=== PATIENT | female | born 1995 | race Caucasian/White ===

== ENCOUNTER 2021-05-14 18:17 | Emergency (ER) | payer OTHER, SELFPAY ==
[2021-05-14 18:37] VITALS: BP 122/84; PULSE 78; RESP 18; TEMP 36.9; O2SAT 100; BMI 35.4
--- NOTE | 2021-05-14 19:53 | HMH.EDUTC ---
[facility] [place] Clinical Impression: Nausea and vomiting Qualifiers: Vomiting type: unspecified Qualified Code(s): R11.2 - Nausea with vomiting, unspecified Qualifiers: Weeks of gestation: 8 weeks Qualified Code(s): Z3A.08 - 8 weeks gestation of Disposition: Home, Self-Care Condition on Discharge: Good Instructions: Diet, Nausea and Vomiting-Adult, Promethazine Additional Instructions: Drink plenty of fluids. Water would be best, but a pedialyte or a sports electrolyte drink would be good also. Take the medications as directed. Follow up with your regular doctor. GO TO THE ER FOR ANY WORSENING SYMPTOMS Prescriptions: Promethazine HCl [Phenergan 25mg tab] 25 mg PO Q6H PRN #20 tab PRN Reason: Nausea And Vomiting Transmission Status: Received by [facility] Referrals: Provider,Referral, [Primary Care Provider] - Forms: Work/School Release Time of Disposition: 19:58 Medical Decision Making - Medical Records Medical records reviewed: No: I reviewed the patient's medical records. - Darrell Inquiry Pt receiving controlled substance: No Vital Signs: 05/14/21 18:37 05/14/21 19:54 05/14/21 20:01 Temperature 98.4 F 98.7 F 98.7 F Temperature Source Oral Oral Oral Pulse Rate 64 Pulse Rate [Right Radial] 78 68 Respiratory Rate 18 16 16 Blood Pressure 110/71 Blood Pressure [Right Arm] 122/84 104/61 L Blood Pressure Mean [Right Arm] 96 75 Blood Pressure Source [Right Arm] Automatic Cuff Blood Pressure Position [Right Arm] Sitting 02 Sat by Pulse Oximetry 100 100 Oxygen Delivery Method Room Air Room Air Room Air - Lab Data Lab results reviewed: Yes: I reviewed the patient's lab results. Orders (Tests/Meds): ED MEDICATIONS Discontinued Medications Generic Name Dose Route Start Last Admin Trade Name Freq PRN Reason Stop Dose Admin Promethazine HCl 25 mg 05/14/21 20:20 05/14/21 20:21 Promethazine 25mg Tablet PO 05/14/21 20:21 25 mg ONCE ONE Administration [facility] [place] - General Stated complaint: 8 weeks ,vomiting Time Seen by Provider: 05/14/21 19:54 Mode of Arrival: Ambulatory Source of Information: Patient Limitations: No Limitations Description of Symptoms (Recalled from Triage Doc. by RN): Pt stated that she has been vomiting on and off for the past few days. She is 8 wks . She has been staying hydrated. - History of Present Illness Provider Complaint: She is 8 weeks . She has had n/v over the past 3 days and she is out of phenergran. She denies any abdominal pain, back pain, vaginal bleeding or any other complaints. - Related Data Previous Rx's Medication Instructions Recorded Promethazine HCl [Phenergan 25mg 25 mg PO Q6H PRN #20 tab 05/14/21 tab] Allergies Allergy/AdvReac Type Severity Reaction Status Date / Time PENICILLIN Allergy Intermediate I-RASH Uncoded 05/24/17 15:02 [facility] History - Hepatitis A Screen Attestation statement:: This patient has been screened for Hepatitis A risk factors. I have reviewed the patient's past medical history: Yes ROS Obtained: Yes All systems reviewed & no additional complaints - Constitutional Constitutional: Denies chills, Denies fever(s) - Eyes Eyes: Denies eye discharge - ENT Ears, Nose, Mouth, and Throat: Denies dizziness, Denies otalgia, Denies sore throat - Cardiovascular Cardiovascular: Denies chest pain - Respiratory Respiratory: Denies chest congestion, Denies cough, Denies dyspnea, Denies stridor, Denies wheezing - Gastrointestinal Gastrointestingal: Reports: as per HPI - Genitourinary Female Genitourinary: Denies dysuria, Denies urinary frequency, Denies urinary incontinence, Denies urinary hesitancy, Denies urinary urgency - Musculoskeletal Musculoskeletal: Denies back pain - Integumentary/Breasts Skin/Breast: Denies rash Physical Exam - General General appearance: alert, i
[2021-05-14 19:54] VITALS: BP 104/61; PULSE 68; RESP 16; TEMP 37.1; O2SAT 100; BMI 35.4
[2021-05-14 20:01] VITALS: BP 110/71; PULSE 64; RESP 16; TEMP 37.1; O2SAT 100
== END 2021-05-14 20:02 | disposition home or self-care (01) ==
LOC: ER 18:39 → UTC 18:40
PROVIDERS: Emergency Provider Nurse Practitioner Family
DX: R11.2 Nausea with vomiting, unspecified (principal); Z3A.08 8 weeks gestation of pregnancy; Z88.0 Allergy status to penicillin
CPT/HCPCS: 99202; G0463

== ENCOUNTER 2021-06-26 12:44 | Emergency (ER) | payer OTHER, SELFPAY ==
[2021-06-26 12:45] VITALS: BP 141/75; PULSE 94; RESP 18; TEMP 36.9; O2SAT 97; BMI 38.2
--- NOTE | 2021-06-26 13:14 | PC.NURSE ---
ER at with ultrasound
--- NOTE | 2021-06-26 13:24 | HMH.EDGENADL ---
ED Disposition Clinical Impression: Second trimester fetus Disposition: Home, Self-Care Condition on Discharge: Good Referrals: Geo López MD [Primary Care Provider] - Time of Disposition: 13:29 - Critical Care Critical Care Time: No Attestation: On 06/26/21, the high probability of a clinically significant, sudden or life threatening deterioration of the following system(s) required my full and direct attention, intervention and personal management. The time I documented below is in addition to time spent performing reported procedures but includes the following listed in this critical care notation. Medical Decision Making - Medical Records Medical records reviewed: Yes: I reviewed the patient's medical records. - Darrell Inquiry Pt receiving controlled substance: No Vital Signs: 06/26/21 12:45 Temperature 98.5 F Temperature Source Oral Pulse Rate [Right Radial] 94 H Respiratory Rate 18 Blood Pressure [Right Arm] 141/75 H Blood Pressure Mean [Right Arm] 97 Blood Pressure Source [Right Arm] Automatic Cuff Blood Pressure Position [Right Arm] Sitting 02 Sat by Pulse Oximetry 97 Oxygen Delivery Method Room Air Medical Decision Narrative: 26-year-old female who presents to the emergency department with chief complaint of concerns about her current . Patient was told she was 7 weeks via ultrasound on May 07. Patient took a urine test today at the [facility] and was told the portion was negative. Given what estimated gestational age should be, patient will just be evaluated with bedside ultrasound. On bedside ultrasound, patient has a normal-appearing amount of fluid, a well-developed fetus that appears to be about 15 weeks with a visible heartbeat, and heart tones measured at 156. Placenta appears anterior, and is low-lying. Discussed with patient that she will need to be evaluated for placenta previa during this . Patient voiced understanding and is amenable to this plan. She was discharged in stable condition at this time. General Adult HPI - General Chief complaint: Recheck/Abnormal Lab/Rx Stated complaint: 15 weeks , cramping, negative test Time Seen by Provider: 06/26/21 13:19 Mode of Arrival: Ambulatory Limitations: No Limitations Description of Symptoms (Recalled from ER Triage Doc. by RN): PT reports she is approx 15 weeks . States she has not been seen in her since she was approx 7 weeks at the [facility] where she had an ultrasound. Pt reports she is going to be seeing Dr. Christianson. Pt reports she was at her suboxone clinic yesterday, states they did a test with a negative result. Pt reports she did have some cramping lastnight and states she had some slight vaginal spotting around week 8 or 9 in . - History of Present Illness HPI narrative: 26-year-old female with history of opiate use disorder currently on Suboxone living at the [facility] who was diagnosed with a 7-week on May 07. This was via ultrasound at the [facility] office. Patient states she took a urine drug screen today at the [facility] and they found her test was negative, so she was sent to the ED for further evaluation. Patient states she has had a small amount of spotting about a week ago, she also had COVID-19 about 4 weeks ago. She had a few cramps with the spotting, but no large amounts of bleeding or fluid loss. She denies any other complaints at this time. MD complaint: eval - Related Data Previous Rx's Medication Instructions Recorded Promethazine HCl [Phenergan 25mg 25 mg PO Q6H PRN #20 tab 05/14/21 tab] ondansetron 4 mg disintegrating 4 mg PO Q6H PRN #30 tab 05/27/21 tablet Allergies Allergy/AdvReac Type Severity Reaction Status Date / Time PENICILLIN Allergy Intermediate I-RASH Uncoded 05/24/17 15:02 [facility] History - Hepatitis A Screen Drug use his
--- NOTE | 2021-06-26 13:26 | PC.NURSE ---
FHR 156 per ultrasound per ER MD
[2021-06-26 13:56] VITALS: BP 141/75; PULSE 94; RESP 18; TEMP 36.9; O2SAT 97
== END 2021-06-26 13:56 | disposition home or self-care (01) ==
PROVIDERS: Emergency Provider Emergency Medicine; PCP Family Medicine
DX: Z3A.15 15 weeks gestation of pregnancy (principal)
CPT/HCPCS: 99281

== ENCOUNTER → 2021-06-26 14:16 | Outpatient (CLI) | payer OTHER, SELFPAY | PROVIDERS: Visit Provider Obstetrics & Gynecology | DX: Z34.90 Encounter for supervision of normal pregnancy, unspecified, unspecified trimester (principal) | CPT/HCPCS: 36415; 84702 ==

== ENCOUNTER → 2021-07-02 12:04 | Outpatient (CLI) | payer OTHER, SELFPAY | PROVIDERS: Visit Provider Obstetrics & Gynecology | DX: Z34.90 Encounter for supervision of normal pregnancy, unspecified, unspecified trimester (principal) | CPT/HCPCS: 36415; 84702 ==

== ENCOUNTER → 2021-07-17 13:04 | Outpatient (CLI) | payer OTHER, SELFPAY ==
--- NOTE | 2021-07-17 13:12 | US_ITS ---
FINAL REPORT CLINICAL HISTORY: Dates-- ist us FINDINGS: There is a single live intrauterine gestation. Presentation is cephalic. The cervix is closed and measures 3.5 cm. Placenta is anterior, grade 1. movement is noted. Heart rate is detected measuring 150 bpm. SPINE: No anomalies identified. AMNIOTIC FLUID: Appropriate amount. MEASUREMENTS: ULTRASOUND AGE: 17 weeks 0 days. GESTATION AGE: 17 weeks 0 days. ESTIMATED WEIGHT: 183 g GROWTH PERCENTILE: 53 % BPD: 3.48 cm consistent with 16 weeks 6 days. OFD: 4.65 cm consistent with 17 weeks 1 day. HC: 12.90 cm consistent with 16 weeks 4 days. AC: 11.65 cm consistent with 17 weeks 3 days. FL: 2.33 cm consistent with 17 weeks 1 day. CEREBELLUM: 1.60 cm consistent with 17 weeks 1 day. HC/AC: 1.11 CI: 75% FL/BPD: 67% FL/AC: 20% IMPRESSION: Single living IUP with an ultrasound age of 17 weeks 0 days. Reviewed, Interpreted and Dictated by Ha Navas III, MD Transcribed by Luci Alvarez Authenticated by Ha Navas III, MD on 07/17/2021 03:43:29 PM [facility]
== END ==
PROVIDERS: PCP Family Medicine; Visit Provider Obstetrics & Gynecology
DX: Z34.90 Encounter for supervision of normal pregnancy, unspecified, unspecified trimester (principal)
CPT/HCPCS: 76805

== ENCOUNTER → 2021-08-04 16:09 | Outpatient (CLI) | payer OTHER, SELFPAY ==
[2021-08-04 17:33] LABS: Basophils % 0.2 % (0.1-2.0); Eosinophils # 0.2 K/mm3 (0.0-0.4); Eosinophils % 1.7 % (0.1-12.0); Hematocrit 35.8 % (37.0-47.0); Hemoglobin 11.8 g/dL (12.2-16.2); Lymphocytes # 2.7 K/mm3 (0.7-4.5); Lymphocytes % 26.6 % (10-50); Mean Corpuscular HGB Conc 32.8 g/dL (31.8-35.4); Mean Corpuscular Hemoglobin 30.8 pg (27.0-31.2); Mean Corpuscular Volume 93.6 fl (81-99); Monocytes # 0.4 K/mm3 (0.1-1.0); Monocytes % 3.5 % (1.7-9.3); Platelet Count 330 K/mm3 (142-424); Red Blood Count 3.82 M/mm3 (4.20-5.40); Red Cell Distribution Width 14.3 % (11.5-17.5); White Blood Count 10.2 K/mm3 (4.8-10.8)
[2021-08-04 18:16] LABS: Alanine Aminotransferase 63 U/L (12-78); Albumin Level 3.6 g/dl (3.5-5.0); Albumin/Globulin Ratio 1.2 (1.1-1.8); Alkaline Phosphatase 73 U/L (38-126); Anion Gap 9.3 mEq/L (5-15); Aspartate Amino Transferase 46 U/L (14-36); Bilirubin,Total 0.4 mg/dl (0.2-1.3); Blood Urea Nitrogen 7 mg/dl (7-17); Carbon Dioxide 22 mmol/L (22.0-30.0); Chloride 105 mmol/L (98-107); Estimated Glomerular Filt Rate 190 ml/min (>60); GFR (African American) 230 ML/MIN (>60); Glucose 84 mg/dl (74-100); Potassium 4.3 mmoL/L (3.5-5.1); Sodium 132 mmol/L (136-145); Total Protein,Serum 6.6 g/dl (6.3-8.2)
[2021-08-06 08:16] LABS: Rubella Antibodies, IgG 4.93 index (Immune >0.99)
[2021-08-06 11:38] LABS: HIV Screen 4th Generation wRfx Non Reactive (Non Reactive); Hepatitis B Surface Antigen Negative (Negative); Hepatitis C Antibody >11.0 s/co ratio (0.0-0.9); Rapid Plasma Reagin Ab Titer Non Reactive (NonRea<1:1)
== END ==
PROVIDERS: Visit Provider Obstetrics & Gynecology
DX: Z34.90 Encounter for supervision of normal pregnancy, unspecified, unspecified trimester (principal); B19.20 Unspecified viral hepatitis C without hepatic coma
CPT/HCPCS: 36415; 80053; 85025; 86592; 86703; 86762; 86850; 87340; 87380; 87522; G0432

== ENCOUNTER → 2021-09-02 13:54 | Outpatient (CLI) | payer OTHER, SELFPAY ==
--- NOTE | 2021-09-02 13:59 | US_ITS ---
FINAL REPORT CLINICAL HISTORY: OB complete, anatomy scan FINDINGS: There is a single live intrauterine gestation. Presentation is breech. The cervix is closed and measures 4 cm. Placenta is anterior, high, grade 1. movement is noted. Heart rate is measured at 146 beats per minute. Three-vessel cord with satisfactory umbilical cord insertion. Four-chamber heart is noted. brain and ventricles are unremarkable. Chest and diaphragm are unremarkable. ABDOMEN: Both kidneys are unremarkable. Stomach is unremarkable. SPINE: No anomalies identified. Both arms and legs noted. AMNIOTIC FLUID: Appropriate amount. MEASUREMENTS: ULTRASOUND AGE: 23 weeks 5 days. GESTATION AGE: 23 weeks 5 days. ESTIMATED WEIGHT: 635 g GROWTH PERCENTILE: 48 % BPD: 5.8 cm corresponding with 23 weeks 5 days. OFD: 7.6 cm corresponding with 24 weeks 0 days. HC: 21.2 cm corresponding with 23 weeks 2 days. AC: 19.6 cm corresponding with 24 weeks 2 days. FL: 4.2 cm corresponding with 23 weeks 4 days. CEREBELLUM: 2.5 cm corresponding with 24 weeks 1 day. NUCH FOLD: 3 mm HC/AC: 1.08 CI: 76% FL/BPD: 72% FL/AC: 21% IMPRESSION: Single living IUP with an ultrasound age of 23 weeks 5 days. Reviewed, Interpreted and Dictated by Ha Navas III, MD Transcribed by Micaela Ross Authenticated by Ha Navas III, MD on 09/02/2021 04:09:46 PM [facility]
== END ==
PROVIDERS: PCP Internal Medicine Cardiovascular Disease; Visit Provider Obstetrics & Gynecology
DX: Z3A.20 20 weeks gestation of pregnancy; Z36.3 Encounter for antenatal screening for malformations
CPT/HCPCS: 76805

== ENCOUNTER → 2021-09-29 13:13 | Outpatient (CLI) | payer OTHER, SELFPAY ==
[2021-09-29 14:01] LABS: Basophils % 0.4 % (0.1-2.0); Eosinophils # 0.3 K/mm3 (0.0-0.4); Eosinophils % 3.3 % (0.1-12.0); Hematocrit 34.4 % (37.0-47.0); Hemoglobin 11.4 g/dL (12.2-16.2); Lymphocytes # 2.5 K/mm3 (0.7-4.5); Lymphocytes % 30.5 % (10-50); Mean Corpuscular HGB Conc 33.1 g/dL (31.8-35.4); Mean Corpuscular Hemoglobin 31.6 pg (27.0-31.2); Mean Corpuscular Volume 95.5 fl (81-99); Mean Platelet Volume 7.8 fl (7.4-10.4); Monocytes # 0.4 K/mm3 (0.1-1.0); Monocytes % 4.3 % (1.7-9.3); Neutrophils % 61.5 % (37.0-80.0); Platelet Count 331 K/mm3 (142-424); Red Cell Distribution Width 13.1 % (11.5-17.5); White Blood Count 8.2 K/mm3 (4.8-10.8)
[2021-09-29 14:09] LABS: Glucose,Fasting 94 mg/dl (74-100)
[2021-09-29 16:59] LABS: Glucose 1 Hour 105 mg/dL (74-100)
== END ==
PROVIDERS: Visit Provider Obstetrics & Gynecology
DX: Z34.90 Encounter for supervision of normal pregnancy, unspecified, unspecified trimester (principal)
CPT/HCPCS: 36415; 82951; 85025

== ENCOUNTER → 2021-11-19 16:41 | Outpatient (CLI) | payer OTHER, SELFPAY | PROVIDERS: Visit Provider Obstetrics & Gynecology | DX: Z34.90 Encounter for supervision of normal pregnancy, unspecified, unspecified trimester (principal) | CPT/HCPCS: 86403 ==

== ENCOUNTER 2021-11-23 23:40 | Outpatient (CLI) | payer OTHER, SELFPAY ==
[2021-11-23 23:49] VITALS: BMI 38.2
[2021-11-24 00:12] LABS: Microscopic, Urine URINE MICROSCOPIC (MICROSCOPIC)
[2021-11-24 00:13] VITALS: BP 129/72; PULSE 88; RESP 19; TEMP 36.6; O2SAT 100; BMI 38.2
[2021-11-24 00:16] LABS: Appearance,Urine CLEAR (Clear); Bilirubin,Urine Negative (Negative); Blood, Urine Negative (Negative); Color,Urine YELLOW (Yellow); Glucose,Urine (UA) Negative (Negative); Ketones,Urine Negative (Negative); Leukocyte Esterase,Urine Negative (Negative); Nitrate,Urine Negative (Negative); Protein,Urine Negative (Negative); Specific Gravity, Urine >= 1.030 (1.005-1.030)
[2021-11-24 00:26] LABS: Fetal Membrane Rupture (Rapid) Negative (Negative)
[2021-11-24 00:31] LABS: Squamous Epithelial Cell,Urine Occasional #/hpf (0-5); WBC,Urine Occasional #/hpf (0-3)
[2021-11-24 01:13] LABS: Amphetamine/Metha Screen,Urine Negative ng/ml (<1000); Barbiturates Screen,Urine Negative ng/ml (<200)
[2021-11-24 01:14] LABS: Benzodiazepines Screen,Urine Negative ng/ml (<200)
[2021-11-24 01:15] LABS: Cannabinoid Screen,Urine Negative ng/ml (<50); Cocaine Screen,Urine Negative ng/ml (<300)
[2021-11-24 01:16] LABS: Methadone Screen,Urine Negative ng/ml (<300); Opiate Screen,Urine Negative ng/ml (<300)
[2021-11-24 01:17] LABS: Phencyclidine Screen,Urine Negative ng/ml (<25)
== END 2021-11-24 02:25 | disposition home or self-care (01) ==
LOC: OBOUT 23:42 → OB 23:42
PROVIDERS: PCP Pediatrics; Visit Provider Obstetrics & Gynecology
DX: O26.893 Other specified pregnancy related conditions, third trimester (principal); Z3A.35 35 weeks gestation of pregnancy
CPT/HCPCS: 59025; 80305; 81001; 84112; G0463

== ENCOUNTER 2021-12-18 04:16 | Inpatient (IN) | payer OTHER, SELFPAY ==
[2021-12-18 04:23] VITALS: BMI 38.0
[2021-12-18 05:01] LABS: Microscopic, Urine URINE MICROSCOPIC (MICROSCOPIC)
[2021-12-18 05:12] LABS: Appearance,Urine CLEAR (Clear); Bilirubin,Urine Negative (Negative); Blood, Urine Negative (Negative); Color,Urine YELLOW (Yellow); Glucose,Urine (UA) Negative (Negative); Ketones,Urine Negative (Negative); Leukocyte Esterase,Urine Negative (Negative); Nitrate,Urine Negative (Negative); PH,Urine 6.5 (5.0-8.5); Protein,Urine Negative (Negative); Specific Gravity, Urine 1.015 (1.005-1.030)
[2021-12-18 05:14] LABS: Basophils # 0.2 K/mm3 (0-0.2); Basophils % 2.4 % (0.1-2.0); Eosinophils # 0.2 K/mm3 (0.0-0.4); Hematocrit 40.5 % (37.0-47.0); Hemoglobin 12.8 g/dL (12.2-16.2); Lymphocytes # 3.1 K/mm3 (0.7-4.5); Lymphocytes % 29.8 % (10-50); Mean Corpuscular HGB Conc 31.6 g/dL (31.8-35.4); Mean Corpuscular Volume 94.8 fl (81-99); Mean Platelet Volume 9.1 fl (7.4-10.4); Monocytes # 0.5 K/mm3 (0.1-1.0); Monocytes % 4.6 % (1.7-9.3); Neutrophils # 6.3 K/mm3 (1.8-7.8); Neutrophils % 61.3 % (37.0-80.0); Platelet Count 360 K/mm3 (142-424); Red Blood Count 4.28 M/mm3 (4.20-5.40); Red Cell Distribution Width 13.5 % (11.5-17.5); White Blood Count 10.3 K/mm3 (4.8-10.8)
[2021-12-18 05:23] LABS: Barbiturates Screen,Urine Negative ng/ml (<200)
[2021-12-18 05:24] LABS: Benzodiazepines Screen,Urine Negative ng/ml (<200)
[2021-12-18 05:25] LABS: Amphetamine/Metha Screen,Urine Negative ng/ml (<1000)
[2021-12-18 05:26] LABS: Cannabinoid Screen,Urine Negative ng/ml (<50); Coronavirus 19, PCR Not Detected (NotDetected); Influenza A, PCR Not Detected (NotDetected); Influenza B, PCR Not Detected (NotDetected); Methadone Screen,Urine Negative ng/ml (<300)
[2021-12-18 05:27] LABS: Cocaine Screen,Urine Negative ng/ml (<300); Opiate Screen,Urine Negative ng/ml (<300)
[2021-12-18 05:28] LABS: Phencyclidine Screen,Urine Negative ng/ml (<25)
[2021-12-18 05:34] LABS: Alanine Aminotransferase 23 U/L (12-78); Albumin Level 3.3 g/dl (3.5-5.0); Albumin/Globulin Ratio 0.9 (1.1-1.8); Alkaline Phosphatase 246 U/L (38-126); Anion Gap 10.3 mEq/L (5-15); Aspartate Amino Transferase 29 U/L (14-36); Blood Urea Nitrogen 12 mg/dl (7-17); Calcium 8.8 mg/dl (8.4-10.2); Carbon Dioxide 24 mmol/L (22.0-30.0); Chloride 104 mmol/L (98-107); Creatinine Clearance Estimated 215 mL/min (50-200); Estimated Glomerular Filt Rate 119 ml/min (>60); GFR (African American) 144 ML/MIN (>60); Globulin 3.5 g/dL (1.3-3.2); Glucose 97 mg/dl (74-100); Potassium 4.3 mmoL/L (3.5-5.1); Sodium 134 mmol/L (136-145); Total Protein,Serum 6.8 g/dl (6.3-8.2)
[2021-12-18 05:35] LABS: Bilirubin,Total 0.1 mg/dl (0.2-1.3)
[2021-12-18 05:39] LABS: Bacteria,Urine Trace /lpf
[2021-12-18 05:50] VITALS: BP 116/59; PULSE 94; RESP 18; TEMP 36.9; O2SAT 100; BMI 38.0
--- NOTE | 2021-12-18 07:32 | HMH.PHAINT ---
MEDICATION RECONCILIATION COMPLETED ON PATIENT USING EXTERNAL FILL HISTORY FROM PHARMACY. -DANA CABRERA, CATHERINED
--- NOTE | 2021-12-18 07:44 | HMH.HP ---
*Admission Date: 12/18/21 *Chief complaint: scheduled c section *History of present illness: 26 yo @ 39 wks care [facility]--Dr. Christianson Dating by 17 week ultrasound complicated by chronic suboxone therapy (16mg daily), hepatitis c and tobacco abuse testing has been reassuring [facility] History I have reviewed the patient's past medical history: Yes Medical History: Reports:: Anxiety, Depression *Have you ever received a pneumonia vaccine?: No *Have you received a flu vaccine this season?: No Other Surgeries: Yes: Cholecystectomy, Amputation: No Fractures: No - *Social History Smoking Status: Current every day smoker Alcohol Intake: never Substance Use Type: former substance user, opiates, painkillers, heroin, methamphetamine *Occupational Status:: other *Travel in the last 8 weeks: None - Psychiatric History Pschychiatric History:: Reports:: Anxiety, Depression Family Hx:: Cancer, Diabetes, Heart Attack, Hypertension, Stroke, Thyroid Disorder, Mental illness, Asthma Para: 1 Review of Systems - Review of Systems Review of systems:: pertinent systems reviewed and negative unless documented below - *Genitourinary Denies abnormal vaginal bleeding Meds Home Medications Medication Instructions Recorded Confirmed Type buprenorphine 8 mg-naloxone 2 mg 2 tab SL DAILY tab 08/04/21 12/18/21 History sublingual tablet prenat.vits,traci,kqy-alan-gqczq 1 tab PO DAILY 08/04/21 12/18/21 History Omeprazole 20 mg PO DAILY 12/18/21 12/18/21 History Ondansetron [Zofran 4mg ODT] 4 mg PO Q6HP PRN 12/18/21 12/18/21 History Allergies Allergy/AdvReac Type Severity Reaction Status Date / Time Penicillins Allergy Intermediate Rash Verified 12/17/21 11:22 Exam Vital signs and Labs for Last 24 Hours: Temp Pulse Resp BP Pulse Ox 98.4 F 94 H 18 116/59 L 100 12/18/21 05:50 12/18/21 05:50 12/18/21 05:50 12/18/21 05:50 12/18/21 05:50 Laboratory Results - last 24 hr 12/18/21 04:30: Urine Color Yellow, Urine Appearance Clear, Urine pH 6.5, Ur Specific [place] 1.015, Urine Protein Negative, Urine Glucose (UA) Negative, Urine Ketones Negative, Urine Blood Negative, Urine Nitrate Negative, Urine Bilirubin Negative, Urine Urobilinogen 1.0, Ur Leukocyte Esterase Negative, Urine RBC None, Urine WBC 3-5, Ur Squamous Epith Cells 3-5, Urine Bacteria Trace 12/18/21 04:30: Urine Opiates Screen Negative, Urine Methadone Screen Negative, Ur Barbituates Screen Negative, Ur Phencyclidine Scrn Negative, Ur Amphetamines Screen Negative, U Benzodiazepines Scrn Negative, Urine Cocaine Screen Negative, U Marijuana (THC) Screen Negative 12/18/21 04:30: SARS-CoV-2 (PCR) Not detected, Influenza A Untype (PCR) Not detected, Influenza Type B (PCR) Not detected 12/18/21 04:50: WBC 10.3, RBC 4.28, Hgb 12.8, Hct 40.5, MCV 94.8, MCH 30.0, MCHC 31.6 L, RDW 13.5, Plt Count 360, MPV 9.1, Neut % (Auto) 61.3, Lymph % (Auto) 29.8, [place] % (Auto) 4.6, Eos % (Auto) 2.0, Baso % (Auto) 2.4 H, Neut # (Auto) 6.3, Lymph # (Auto) 3.1, [place] # (Auto) 0.5, Eos # (Auto) 0.2, Baso # (Auto) 0.2 12/18/21 04:50: Sodium 134 L, Potassium 4.3, Chloride 104, Carbon Dioxide 24, Anion Gap 10.3, BUN 12, Creatinine 0.60, Estimated Creat Clear 215, Estimated GFR 119, Est GFR ( Amer) 144, Glucose 97, Calcium 8.8, Total Bilirubin 0.1 L, AST 29, ALT 23, Alkaline Phosphatase 246 H, Total Protein 6.8, Albumin 3.3 L, Globulin 3.5 H, Albumin/Globulin Ratio 0.9 L 12/18/21 04:50: Blood Type B Positive, Antibody Screen Negative I & O for Last 24 hours: Intake & Output 12/15/21 12/16/21 12/17/21 12/18/21 11:59 11:59 11:59 11:59 Weight 215 lb - Constitutional no acute distress - *Routine HEENT Exam Head: Present: normocephalic Eye: Absent: conjunctival icterus, scleral injection ENT: Present: mucous membranes moist - *Routine Neck Exam Present: supple. Absent: lymphadenopathy - *Routine Respiratory Exam Present: CTA bilate
[2021-12-18 08:33] LABS: Cord Blood PH 7.19 (7.35-7.45)
[2021-12-18 09:03] VITALS: BP 107/57; PULSE 69; RESP 16; TEMP 36.5; O2SAT 98
[2021-12-18 09:13] VITALS: BP 108/63; PULSE 68; RESP 16; O2SAT 97
--- NOTE | 2021-12-18 09:21 | HMH.OPNOTE ---
Date of procedure: 12/18/21 Pre-op Diagnosis:: 1. 39 0/7 weeks 2. Previous c section, declines trial of labor 3. Suboxone dependence 4. HCV 5. Tobacco abuse 6. Anemia Post-op Diagnosis:: Same Procedure performed:: Low Transverse C Section Surgeon:: Alexa Christianson MD Securities Underwriter(s):: Kaur Martinez DO SCREED OPERATOR:: Other Anesthesia: spinal Estimated blood loss (mL): 700 Operative findings:: Female infant in vertex presentation, vigorous at , with apgars 8 (1 min) and 9 (5 min) Nuchal cord x 1 Grossly normal uterus, fallopian tubes and ovaries Meconium-stained amniotic fluid Calcified placenta Operative note:: The patient was taken to the OR and spinal was administered without difficulty. She was prepped and draped in normal sterile fashion. A pfannenstiel skin incision was made with the scalpel and carried down to the fascia. The fascia was incised in the midline and sharply dissected off the rectus muscles. The muscles were in the midline and the peritoneum was entered sharply and extended bluntly. The Jeremi-O self retaining retractor was placed in the abdomen and a bladder flap was created. The uterus was incised in the lower uterine segment in a transverse fashion and extended bluntly. Amniotomy was performed and meconium-stained amniotic fluid noted. The was delivered in controlled fashion, without complication or shoulder dystocia. A nuchal cord x 1 was reduced after delivery of the vertex. The was vigorous at and handed to awaiting director of operations support and nursing staff for evaluation after the umbilical cord was clamped and cut. Cord blood was collected for pH and a cord segment was preserved. The placenta was manually extracted (intact) and noted to be moderately calcified. The uterus was repaired with 0-vicryl in a running/locked fashion. The peritoneum was closed with 2-0 vicryl in a running fashion. The fascia was closed with #1 vicryl in a running fashion. The subcutaneous fat was closed with 2-0 vicryl in an interrupted fashion. The skin was closed with 2-0 stratafix in a subcuticular fashion. The patient tolerated the procedure well. Sponge, lap, needle and instrument counts were correct x 2. EBL: 700cc. TAP block was placed by anesthesia after abdominal dressing was applied. She was taken to PACU awake and in stable condition. Condition: stable Disposition: PACU Specimens:: Placenta Umbilical cord segment Umbilical cord blood Complications:: None
[2021-12-18 09:23] VITALS: BP 114/69; PULSE 66; RESP 16; O2SAT 99
--- NOTE | 2021-12-18 09:29 | P.PN_ITS ---
[facility] Anesthesia Checklist - Patient Identification Patient Identification: Arm Band - Structural Data Admitted From: Inpatient Planned Operative Procedure/s: C/S Consent for Planned Operative Procedure(s) Verified: Yes - NPO Status Verified Time NPO: 00:00 - Airway Assessment C-Spine Mobility Assessed: Yes TMJ Mobility Assessed: Yes Dentition: Good Dentition - Neurological Assessment Level of Consciousness: Awake Hx Seizures: No Numbness or tingling in extremities: No - Anesthesia Plan Anesthesia Risk discussed: Yes Anesthesia Plan: Verified ASA Class: II Anesthesia Type: Spinal [facility] History I have reviewed the patient's past medical history: Yes Medical History: Reports:: Anxiety, Depression, Hepatitis (C) *Have you ever received a pneumonia vaccine?: No *Have you received a flu vaccine this season?: No Anesthesia experience/problems:: None Other Surgeries: Yes: Cholecystectomy, Amputation: No Fractures: No - *Social History Smoking Status: Current every day smoker Alcohol Intake: never Substance Use Type: former substance user, opiates, painkillers, heroin, methamphetamine *Occupational Status:: other *Travel in the last 8 weeks: None - Psychiatric History Pschychiatric History:: Reports:: Anxiety, Depression Family Hx:: Cancer, Diabetes, Heart Attack, Hypertension, Stroke, Thyroid Disorder, Mental illness, Asthma Para: 1
[2021-12-18 09:33] VITALS: BP 101/68; PULSE 65; RESP 16; TEMP 36.6; O2SAT 100
--- NOTE | 2021-12-18 09:54 | PC.NURSE ---
Report received from Iman (CHIEF INNOVATION OFFICER)
--- NOTE | 2021-12-18 09:59 | P.CONPHA_ITS ---
[facility] Pharmacy VTE Monitoring - Patient Demographics Admission date: 12/18/21 Report Date: 12/18/21 Time: 09:59 Allergies/Adverse Reactions: Patient Allergies Penicillins Allergy (Intermediate, Verified 12/17/21 11:22) Rash Height: 1.6 m Weight: 97.522 kg Patient Problems: Current Active Problems 39 weeks gestation of (Acute) Anemia affecting (Acute) Obesity, Class II, BMI 35-39.9 (Acute) History of intravenous drug abuse (Acute) Previous section (Acute) Tobacco smoking affecting (Acute) complicated by Suboxone maintenance, antepartum (Acute) Late care (Acute) HCV (hepatitis C virus) (Acute) - VTE Risk Labs: VTE Related Lab Results Hgb 12.8 g/dL (12.2-16.2) 12/18/21 04:50 Hct 40.5 % (37.0-47.0) 12/18/21 04:50 Plt Count 360 K/mm3 (142-424) 12/18/21 04:50 BUN 12 mg/dl (7-17) 12/18/21 04:50 Creatinine 0.60 mg/dl (0.52-1.04) 12/18/21 04:50 Estimated Creat Clear 215 mL/min (50-200) 12/18/21 04:50 - Prophylaxis VTE Prophylaxis Ordered?: Yes Types of VTE Prophylaxis: IPCS Thigh High Location of Applied Device: Bilateral Lower Extremeties
--- NOTE | 2021-12-18 13:31 | SW/DCPLANNER ---
Addendum entered by Elena Mitchell 12/21/21 10:51: This report did NOT meet criteria. Original Note: I received a referral on this patient: limited care, positive for THC and Suboxone Clinic. Patient delivered female (Daniel Mckenna) today 12/18/21. 's father was present at time of evaluation: Pierce Mckenna 06/28. Patient, and patient's brother (Collin Bishop 11/20/85) will reside at [address] [place] [address] in [place] [address]. Patient's contact number is [phone]. This is patient's second child, she does not have custody of her first child (Matt Liu) due to being in rehabilitation center. Patient stated that she never went back to court for custody due to having a visitation agreement with child's father. Patient stated that she does have the following items at home: crib, carseat, clothing, diapers, bottle/breast feeding. Patient is established with [facility] and is interested in HANDS. I did provide this patient with contact information to HANDS Department in [place]. Patient is expected to discharge on Tuesday12/21/21. Patient is enrolled in [facility]: [facility] since 03/2021. Patient was positive for Naloxone (narcan) on 10/15/21 (Pharmacy verified this could be from Suboxone). Patient stated that her first visit was at 19 weeks (08/04/21) and she tested positive for THC but denied THC use. Patient stated her care was late due to: not knowing she was pregnany, attempting to make an appointment then having COVID-19. I did report this situation to Central Intake ID# [id number]. I will follow up with ID# prior to discharge.
[2021-12-19 06:53] LABS: Hematocrit 30.6 % (37.0-47.0); Hemoglobin 9.9 g/dL (12.2-16.2)
--- NOTE | 2021-12-19 11:32 | HMH.ACPN2 ---
Internal Medicine - PN: Subj *Date: 12/19/21 *Time: 11:32 Interval history: POD # 1 s/p RLTCS Patient sitting in chair breast feeding. Pain is controlled. Light lochia. Denies fever/chills, chest pain and shortness of breath. Denies swelling. Voiding without difficulty. Passing flatus. Exam Vital signs and Labs for Last 24 Hours: Temp Pulse Resp BP Pulse Ox 97.9 F 65 16 101/68 L 100 12/18/21 09:33 12/18/21 09:33 12/18/21 09:33 12/18/21 09:33 12/18/21 09:33 Laboratory Results - last 24 hr 12/19/21 06:30: Hgb 9.9 L, Hct 30.6 L I & O for Last 24 hours: Intake & Output 12/16/21 12/17/21 12/18/21 12/19/21 23:59 23:59 23:59 23:59 Output Total 1200 / 1200 Balance -1200 / -1200 Weight 215 lb - Constitutional no acute distress - *Routine Respiratory Exam Present: CTA bilaterally - *Routine Cardiovascular Exam Present: RRR - *Routine Abdominal Exam Present: soft, normoactive bowel sounds. Absent: tenderness, distended (uterine fundus firm and below umbilicus. Dressing over pfannenstiel incision without significant drainage) - *Routine Extremities Exam Present: full ROM. Absent: edema, calf tenderness Assessment and Plan (1) 39 weeks gestation of Status: Acute Category: Medical Code(s): Z3A.39 - 39 weeks gestation of (2) Late care Status: Acute Category: Medical Code(s): O09.30 - Supervision of with insufficient care, unspecified trimester (3) complicated by Suboxone maintenance, antepartum Status: Acute Category: Medical Code(s): O99.320 - Drug use complicating , unspecified trimester; F11.20 - Opioid dependence, uncomplicated (4) HCV (hepatitis C virus) Status: Acute Category: Medical Code(s): B19.20 - Unspecified viral hepatitis C without hepatic coma (5) History of intravenous drug abuse Status: Acute Category: Social Hx Code(s): F19.11 - Other psychoactive substance abuse, in remission (6) Obesity, Class II, BMI 35-39.9 Status: Acute Category: Medical Code(s): E66.9 - Obesity, unspecified (7) Anemia affecting Status: Acute Category: Medical Code(s): O99.019 - Anemia complicating , unspecified trimester (8) Previous section Status: Acute Category: Surgical Code(s): Z98.891 - History of uterine scar from previous surgery (9) Tobacco smoking affecting Status: Acute Category: Medical Code(s): O99.330 - Smoking (tobacco) complicating , unspecified trimester (10) Postoperative anemia due to acute blood loss Status: Acute Category: Medical Code(s): D62 - Acute posthemorrhagic anemia - Assessment and plan all Dx Assessment and Plan for all problems:: Continue routine care Encouraged increased ambulation Venofer 200 mg IVP x 1 Plan discharge with plan to guest/ room in with baby
--- NOTE | 2021-12-19 18:03 | PC.NURSE ---
This nurse spoke with Central intake, regarding ID number [id number]. report received that this case did not meet criteria and was not assigned to registered nurse hh case manager. information repeated and verified with central intake personnel.
--- NOTE | 2021-12-20 12:40 | [facility].OBDCSM ---
General - General Admission date:: 12/18/21 Discharge date: 12/20/21 HPI - History of Present Illness History of present illness: POD #2 s/p RLTCS Patient resting comfortably in bedside recliner holding baby. She is breast feeding. Pain controlled with Tylenol, Motrin and her Suboxone. Light lochia. Voiding without difficulty. Passing flatus. She had a BM. Denies fever/chills, chest pain and shortness of breath. Denies headaches, vision changes and swelling. Hospital Course Hospital Course: Ms Tonja Bishop is a 26 yo at 39w0d admitted to [facility] Labor and Delivery on 12/18/21 for scheduled repeat . She underwent a repeat on 12/18/21. She delivered a girl, 6 lb 9 oz. APGARs were 8, 9. EBL was 700 mL. PPD #1 She was doing well. No chief complaints. She is breast feeding. Vitals were: BP 101/68, HR 65, R 16, T 97.9. Heart was regular rate and rhythm. Lungs were clear to auscultation. Abdomen was soft, nontender, uterine fundus firm and below umbilicus. Lochia was light. Trace lower extremity swelling. She received Venofer 200 mg IV x 1 dose. PPD # 2 She was doing well. She had no chief complaints. Reported decreased lochia. She was urinating without difficulty. Passing flatus. Pain was controlled. She had no nausea, vomiting, fever/chills, chest pain or shortness of breath. Vital signs were stable. Heart was regular rate and rhythm. Lungs were clear to auscultation. Abdomen was soft, nontender, uterine fundus firm and below umbilicus. Extremities with trace edema. No calf tenderness to palpation. Normal hospital course. During this admission, patient's hemoglobin and hematocrit were: 12/18/21 - Hgb 12.8, Hct 40.5 12/19/21 - Hgb 9.9, Hct 30.6 Rhogam Administration: Not Indicated Objective Vital signs: Temp Pulse Resp BP Pulse Ox 97.9 F 65 16 101/68 L 100 12/18/21 09:33 12/18/21 09:33 12/18/21 09:33 12/18/21 09:33 12/18/21 09:33 no acute distress - *Routine Respiratory Exam Present: CTA bilaterally - *Routine Cardiovascular Exam Present: RRR - *Routine Abdominal Exam Present: soft, normoactive bowel sounds. Absent: tenderness, distended Comments: uterine fundus firm and below umbilicus, pfannenstiel incision healing well, clean/dry/intact - *Routine Extremities Exam Present: edema (trace bilateral lower extremity edema), full ROM. Absent: calf tenderness - *Routine Neurological Exam Present: alert, oriented X3 DS: Diagnosis - Discharge Diagnosis (1) 39 weeks gestation of Status: Acute (2) Late care Status: Acute (3) complicated by Suboxone maintenance, antepartum Status: Acute (4) HCV (hepatitis C virus) Status: Acute (5) History of intravenous drug abuse Status: Acute (6) Obesity, Class II, BMI 35-39.9 Status: Acute (7) Anemia affecting Status: Acute (8) Previous section Status: Acute (9) Tobacco smoking affecting Status: Acute (10) Postoperative anemia due to acute blood loss Status: Acute Discharge Plan - Patient Discharge Instructions ACTIVITY: Continue current activity DIET: continue same diet Additional Instructions: No tub baths. Nothing in the vagina for 6 weeks Drink plenty of fluids. Do not lift anything heavier then your baby for 6 weeks. Keep incision area clean and dry. Patient Instructions: Depression, Hemorrhage, DI for , DI for Pre-eclampsia, Coronavirus Disease 2019, [facility] Post Discharge Instructions - Follow up Plan Follow up with: Alexa Christianson MD [Staff Physician] - 12/29/21 11:45 am Disposition: Home, Self-Care Condition at discharge:: Stable Home Medications: Home Medications Medication Instructions Recorded Confirmed Type buprenorphine 8 mg-naloxone 2 mg 2 tab SL DAILY tab 08/04/21 12/18/21 History sublingual tablet prenat.vits,traci,[id number] 1 tab PO
[2021-12-27 10:09] LABS: Buprenorphine Positive (.); Norbuprenorphine Positive (.)
== END 2021-12-20 16:45 | disposition home or self-care (01) | DRG 787 ==
PROVIDERS: Admitting Provider Obstetrics & Gynecology; PCP Pediatrics; Visit Provider Obstetrics & Gynecology
PROC: 10D00Z1 Extraction of Products of Conception, Low, Open Approach (ICD-10-PCS; CPT 59514; principal; 2021-12-18 07:30)
DX: O34.211 Maternal care for low transverse scar from previous cesarean delivery (principal); O98.413 Viral hepatitis complicating pregnancy, third trimester; O99.323 Drug use complicating pregnancy, third trimester; N85.8 Other specified noninflammatory disorders of uterus; Z3A.39 39 weeks gestation of pregnancy; Z37.0 Single live birth; O99.333 Smoking (tobacco) complicating pregnancy, third trimester; F17.210 Nicotine dependence, cigarettes, uncomplicated; F19.11 Other psychoactive substance abuse, in remission; O69.81X0 Labor and delivery complicated by cord around neck, without compression, not applicable or unspecified; B19.20 Unspecified viral hepatitis C without hepatic coma
CPT/HCPCS: 59514; 36415; 59025; 80053; 80305; 80348; 81001; 82800; 85014; 85018; 85025; 86850; 94761; C9290; C9803; G0283; J0574; J1756; J2405; U0003; U0005